=== PATIENT | female | born 1930 | race Caucasian/White ===

== ENCOUNTER 2016-05-14 20:20 | Emergency (ER) | payer OTHER ==
--- NOTE | 2016-05-14 21:24 | ED CLINICAL REPORT ---
Clinical Report - Physicians/Mid Levels [facility] [address] [place] [address] 05/14/2016 20:21 Patient: VIJAYA HAYWOOD Time Seen: 21:15. Arrived- By private vehicle. Historian- patient. HISTORY OF PRESENT ILLNESS Chief Complaint: FOREIGN BODY SENSATION IN THROAT. This started today and is still present but is better now. Pain described as mild. No sore throat, mouth sores, nasal discharge or congestion or ear pain. No toothache, swollen jaw or face, jaw pain or facial pain. (Patient states that the symptoms started while she was eating dinner tonight. She states that when she tried to swallow liquids they just came back up. Patient states that while in the emergency department she feels as though the food bolus passed. She states she has been able to drink water and has had no further problems swallowing.). Similar symptoms previously: Recent medical care: Not recently seen/assessed. REVIEW OF SYSTEMS No fever, eye discomfort, cough, difficulty breathing or chest pain. No nausea, diarrhea, abdominal pain, difficulty with urination or headache. No fainting episodes, joint pain, skin rash, enlarged lymph nodes or vomiting. All systems otherwise negative, except as recorded above. PAST HISTORY Problems: Cancer. Atrial Fibrillation. Dementia. Hypertension. Immunizations. Additional Surgeries: Feet. Lumpectomy of breast. Medications: Aspirin Oral. Diltiazem HCl Oral. Donepezil HCl Oral (Tablet 5 mg) 1 tablet, daily. Escitalopram Oxalate Oral (Tablet 10 mg) 1 tablet, daily. Allergies: Morphine and Related. SOCIAL HISTORY Never smoker. No alcohol use or drug use. ADDITIONAL NOTES The nursing notes have been reviewed. PHYSICAL EXAM Vital Signs: 05/14/2016 20:23 BP: 142/86. HR: 74. RR: 18. O2 saturation: 98%. Temp: 98 F. Pain level now: 0/10. Have been reviewed. Appearance: Alert. No acute distress. Head: Normal external inspection. Eyes: Pupils equal, round and reactive to light. Conjunctivae and eyelids normal. ENT: Nose normal. Pharynx normal. Lips normal. Gums normal. No trismus present. Uvula midline. Neck: Trachea midline. No adenopathy. Thyroid normal. CVS: Normal heart rate and rhythm. Heart sounds normal. Pulses normal. Respiratory: No respiratory distress. Breath sounds normal. Abdomen: Soft and nontender. No organomegaly. Skin: Normal skin color. No rash. Normal skin turgor. Extremities: Extremities exhibit normal ROM. Extremities nontender. Neuro: Oriented X 3. No motor deficit. No sensory deficit. LABS, X-RAYS, AND EKG Pulse Oximetry: 05/14/2016 20:23 O2 saturation: 98%. (FIO2 - room air). Interpretation: normal. PROGRESS AND PROCEDURES Course of Care: The patient's symptoms had completely resolved in the emergency department and since exam was normal. I did not feel any further workup or intervention was indicated in the emergency department. Patient and spouse counseled in person regarding the patient's stable condition and diagnosis. Concerns were addressed. Old medical records reviewed. Disposition: Discharged. Condition: stable and improved. CLINICAL IMPRESSION Esophageal foreign body: food- removed (with spontaneous passage in the ED). INSTRUCTIONS Drink plenty of fluids. Warnings: GENERAL WARNINGS: Return or contact your physician immediately if your condition worsens or changes unexpectedly, if not improving as expected, or if other problems arise. Your Current Medications: CONTINUE TAKING THE FOLLOWING MEDICATIONS: Aspirin Oral. Diltiazem HCl Oral. Donepezil HCl Oral : Tablet 5 mg, 1 tablet daily. Escitalopram Oxalate Oral : Tablet 10 mg, 1 tablet daily. Follow-up: Follow up with a emergency medical service manager. Call for the next available appointment. Reason for referral: Follow up recurrent esophageal food impactions. Understanding of the discharge instructions verbalized by patient and family. (Electronically signed by Joyce Wilkinson MD 05/24/2016 8:36)
--- NOTE | 2016-05-14 21:24 | ED NURSING NOTES ---
Clinical Report - Nurses [facility] [address] [place] [address] 05/14/2016 20:21 Patient: VIJAYA HAYWOOD TRIAGE Triage time 20:27. Acuity: LEVEL 3. Chief Complaint: ("something is stuck in my throat"). --20:33 Evgeny Blankenship R.N. 20:05/14/16. BP: 142/86. HR: 74. RR: 18. O2 saturation: 98% on room air. Temp: 98 F (oral). Pain level now: 0/10. --20:33 Evgeny Blankenship R.N. <<STRICKEN ENTRY-- 20:23 05/14/16. BP: 142/86. HR: 74. RR: 18. O2 saturation: 98% on room air. Pain level now: 0/10. --20:33 Evgeny Blankenship R.N. --END STRIKE>> Correction. --21:47 Evgeny Blankenship R.N. Weight: 49.4 kg stated. Height/Length: 57 inches Per Patient. BMI: 23.6. --20:32 Evgeny Blankenship R.N. Medications Diltiazem HCl Oral. Donepezil HCl Oral (Tablet 5 mg) 1 tablet, daily. Escitalopram Oxalate Oral (Tablet 10 mg) 1 tablet, daily. --20:30 Evgeny Blankenship R.N. Aspirin Oral. --20:31 Evgeny Blankenship R.N. Allergies Morphine and Related. --20:30 Evgeny Blankenship R.N. History Arrived by EMS, and from home (M99). Historian: spouse and patient. Accompanied by family. This started just prior to arrival. ( pt states that she was eating dinner, when she suddenly had the sensation that something was stuck in her throat, and she wasn't able to swallowing anything but "foam" denies vomiting, but states "nothing comes up but foam"). Treatment PAINTING DEPARTMENT SUPERVISOR: None. --20:33 Evgeny Blankenship R.N. PROBLEMS: UTI - Urinary Tract Infection. Cancer. Atrial Fibrillation. Dementia. Conjunctivitis. Hypertension. Immunizations. --20:29 Evgeny Blankenship R.N. ADDITIONAL SURGERIES: Feet. Lumpectomy of breast. --20:31 Evgeny Blankenship R.N. Interventions ID band on patient. To treatment room. --20:33 Evgeny Blankenship R.N. PHYSICAL ASSESSMENT ( Lore Mera RN gave the patient a soda to drink, and then the patient stated "It's gone now. It went down. It's gone now."). GENERAL / NEURO / PSYCH: Alert. --20:34 Evgeny Blankenship R.N. ( pt complains of left upper arm pain, stating the she broke her arm "3 months ago."). CVS: Capillary refill less than 2 seconds. GI / : Abdomen soft and nontender. --20:34 Evgeny Blankenship R.N. RESPIRATORY: Respirations not labored. --20:34 Evgeny Blankenship R.N. ( airway patent, no respiratory distress.). --20:35 Evgeny Blankenship R.N. NURSING PROGRESS NOTES Pulse oximeter and NIBP monitor placed on patient. Head of bed elevated. Reassurance given. Two patient identifiers checked. Call light placed in reach. Side rails up x 2. Bed placed in lowest position. Brakes of bed on. Patient ready for evaluation- chart flagged. Patient waiting for evaluation. --20:35 Evgeny Blankenship R.N. ( Spouse of patient at bedside). --20:36 Evgeny Blankenship R.N. ( Spouse of patient states "This has happened before, 3 times in the recent past."). --20:37 Evgeny Blankenship R.N. pt given sprite to drink with head in chin/chest position. Pt states the FB is now gone. --20:42 Lore Guallpa R.N. ( Patient assisted to bedside commode. she is able to bear wieght, but is unsteady on her feet. her states that she uses a wheelchair at home.). --21:19 Evgeny Blankenship R.N. DISPOSITION / DISCHARGE Departure time: 21:46. Condition at departure: improved and stable. Learning barriers present. Ability to learn limited by dementia. Discharge instructions provided and reviewed with the patient and spouse. Reviewed warnings. Treatments reviewed. Reviewed referrals for followup. Patient and spouse verbalized understanding. Written instructions provided in Persian. The patient was discharged home and accompanied by spouse. She left the Emergency Department in a wheelchair and via private vehicle. Spouse driving. --21:46 Evgeny Blankenship R.N. 21:45 05/14/16. BP: 117/83. HR: 72. RR: 17 (regular and unlabored). O2 saturation: 96% on room air. Pain level now: 0/10. --21:46 Evgeny Blankenship R.N. Locked/Released at 05/14/2016 21:48 by Evgeny Blankenship R.N.
--- NOTE | 2016-05-14 21:24 | ED NURSING NOTES ---
Clinical Report - Nurses [facility] [address] [place] [address] 05/14/2016 20:21 Patient: VIJAYA HAYWOOD TRIAGE Triage time 20:27. Acuity: LEVEL 3. Chief Complaint: ("something is stuck in my throat"). --20:33 Evgeny Blankenship R.N. 20:05/14/16. BP: 142/86. HR: 74. RR: 18. O2 saturation: 98% on room air. Temp: 98 F (oral). Pain level now: 0/10. --20:33 Evgeny Blankenship R.N. <<STRICKEN ENTRY-- 20:23 05/14/16. BP: 142/86. HR: 74. RR: 18. O2 saturation: 98% on room air. Pain level now: 0/10. --20:33 Evgeny Blankenship R.N. --END STRIKE>> Correction. --21:47 Evgeny Blankenship R.N. Weight: 49.4 kg stated. Height/Length: 57 inches Per Patient. BMI: 23.6. --20:32 Evgeny Blankenship R.N. Medications Diltiazem HCl Oral. Donepezil HCl Oral (Tablet 5 mg) 1 tablet, daily. Escitalopram Oxalate Oral (Tablet 10 mg) 1 tablet, daily. --20:30 Evgeny Blankenship R.N. Aspirin Oral. --20:31 Evgeny Blankenship R.N. Allergies Morphine and Related. --20:30 Evgeny Blankenship R.N. History Arrived by EMS, and from home (M99). Historian: spouse and patient. Accompanied by family. This started just prior to arrival. ( pt states that she was eating dinner, when she suddenly had the sensation that something was stuck in her throat, and she wasn't able to swallowing anything but "foam" denies vomiting, but states "nothing comes up but foam"). Treatment FAMILY MANAGER: None. --20:33 Evgeny Blankenship R.N. PROBLEMS: UTI - Urinary Tract Infection. Cancer. Atrial Fibrillation. Dementia. Conjunctivitis. Hypertension. Immunizations. --20:29 Evgeny Blankenship R.N. ADDITIONAL SURGERIES: Feet. Lumpectomy of breast. --20:31 Evgeny Blankenship R.N. Interventions ID band on patient. To treatment room. --20:33 Evgeny Blankenship R.N. PHYSICAL ASSESSMENT ( Lore Mera RN gave the patient a soda to drink, and then the patient stated "It's gone now. It went down. It's gone now."). GENERAL / NEURO / PSYCH: Alert. --20:34 Evgeny Blankenship R.N. ( pt complains of left upper arm pain, stating the she broke her arm "3 months ago."). CVS: Capillary refill less than 2 seconds. GI / : Abdomen soft and nontender. --20:34 Evgeny Blankenship R.N. RESPIRATORY: Respirations not labored. --20:34 Evgeny Blankenship R.N. ( airway patent, no respiratory distress.). --20:35 Evgeny Blankenship R.N. NURSING PROGRESS NOTES Pulse oximeter and NIBP monitor placed on patient. Head of bed elevated. Reassurance given. Two patient identifiers checked. Call light placed in reach. Side rails up x 2. Bed placed in lowest position. Brakes of bed on. Patient ready for evaluation- chart flagged. Patient waiting for evaluation. --20:35 Evgeny Blankenship R.N. ( Spouse of patient at bedside). --20:36 Evgeny Blankenship R.N. ( Spouse of patient states "This has happened before, 3 times in the recent past."). --20:37 Evgeny Blankenship R.N. pt given sprite to drink with head in chin/chest position. Pt states the FB is now gone. --20:42 Lore Guallpa R.N. ( Patient assisted to bedside commode. she is able to bear wieght, but is unsteady on her feet. her states that she uses a wheelchair at home.). --21:19 Evgeny Blankenship R.N. DISPOSITION / DISCHARGE Departure time: 21:46. Condition at departure: improved and stable. Learning barriers present. Ability to learn limited by dementia. Discharge instructions provided and reviewed with the patient and spouse. Reviewed warnings. Treatments reviewed. Reviewed referrals for followup. Patient and spouse verbalized understanding. Written instructions provided in Lithuanian. The patient was discharged home and accompanied by spouse. She left the Emergency Department in a wheelchair and via private vehicle. Spouse driving. --21:46 Evgeny Blankenship R.N. 21:45 05/14/16. BP: 117/83. HR: 72. RR: 17 (regular and unlabored). O2 saturation: 96% on room air. Pain level now: 0/10. --21:46 Evgeny Blankenship R.N. Locked/Released at 05/14/2016 21:48 by Evgeny Blankenship R.N.
--- NOTE | 2016-05-14 21:24 | ED CLINICAL REPORT ---
Clinical Report - Physicians/Mid Levels [facility] [address] [place] [address] 05/14/2016 20:21 Patient: VIJAYA HAYWOOD Time Seen: 21:15. Arrived- By private vehicle. Historian- patient. HISTORY OF PRESENT ILLNESS Chief Complaint: FOREIGN BODY SENSATION IN THROAT. This started today and is still present but is better now. Pain described as mild. No sore throat, mouth sores, nasal discharge or congestion or ear pain. No toothache, swollen jaw or face, jaw pain or facial pain. (Patient states that the symptoms started while she was eating dinner tonight. She states that when she tried to swallow liquids they just came back up. Patient states that while in the emergency department she feels as though the food bolus passed. She states she has been able to drink water and has had no further problems swallowing.). Similar symptoms previously: Recent medical care: Not recently seen/assessed. REVIEW OF SYSTEMS No fever, eye discomfort, cough, difficulty breathing or chest pain. No nausea, diarrhea, abdominal pain, difficulty with urination or headache. No fainting episodes, joint pain, skin rash, enlarged lymph nodes or vomiting. All systems otherwise negative, except as recorded above. PAST HISTORY Problems: Cancer. Atrial Fibrillation. Dementia. Hypertension. Immunizations. Additional Surgeries: Feet. Lumpectomy of breast. Medications: Aspirin Oral. Diltiazem HCl Oral. Donepezil HCl Oral (Tablet 5 mg) 1 tablet, daily. Escitalopram Oxalate Oral (Tablet 10 mg) 1 tablet, daily. Allergies: Morphine and Related. SOCIAL HISTORY Never smoker. No alcohol use or drug use. ADDITIONAL NOTES The nursing notes have been reviewed. PHYSICAL EXAM Vital Signs: 05/14/2016 20:23 BP: 142/86. HR: 74. RR: 18. O2 saturation: 98%. Temp: 98 F. Pain level now: 0/10. Have been reviewed. Appearance: Alert. No acute distress. Head: Normal external inspection. Eyes: Pupils equal, round and reactive to light. Conjunctivae and eyelids normal. ENT: Nose normal. Pharynx normal. Lips normal. Gums normal. No trismus present. Uvula midline. Neck: Trachea midline. No adenopathy. Thyroid normal. CVS: Normal heart rate and rhythm. Heart sounds normal. Pulses normal. Respiratory: No respiratory distress. Breath sounds normal. Abdomen: Soft and nontender. No organomegaly. Skin: Normal skin color. No rash. Normal skin turgor. Extremities: Extremities exhibit normal ROM. Extremities nontender. Neuro: Oriented X 3. No motor deficit. No sensory deficit. LABS, X-RAYS, AND EKG Pulse Oximetry: 05/14/2016 20:23 O2 saturation: 98%. (FIO2 - room air). Interpretation: normal. PROGRESS AND PROCEDURES Course of Care: The patient's symptoms had completely resolved in the emergency department and since exam was normal. I did not feel any further workup or intervention was indicated in the emergency department. Patient and spouse counseled in person regarding the patient's stable condition and diagnosis. Concerns were addressed. Old medical records reviewed. Disposition: Discharged. Condition: stable and improved. CLINICAL IMPRESSION Esophageal foreign body: food- removed (with spontaneous passage in the ED). INSTRUCTIONS Drink plenty of fluids. Warnings: GENERAL WARNINGS: Return or contact your physician immediately if your condition worsens or changes unexpectedly, if not improving as expected, or if other problems arise. Your Current Medications: CONTINUE TAKING THE FOLLOWING MEDICATIONS: Aspirin Oral. Diltiazem HCl Oral. Donepezil HCl Oral : Tablet 5 mg, 1 tablet daily. Escitalopram Oxalate Oral : Tablet 10 mg, 1 tablet daily. Follow-up: Follow up with a medical scheduler. Call for the next available appointment. Reason for referral: Follow up recurrent esophageal food impactions. Understanding of the discharge instructions verbalized by patient and family. (Electronically signed by Joyce Wilkinson MD 05/24/2016 8:36)
--- NOTE | 2016-05-24 08:36 | ED MAR SUMMARY ---
..... Medication Administration Record [facility] [address] [place], [place] [id number] Patient: VIJAYA HAYWOOD Visit ID: [id number] 86y, F Weight: 49.4 kg Height/Length: 57 in BMI: 23.6 ALLERGIES: Morphine and Related
--- NOTE | 2016-05-24 08:36 | ED MED RECONCILIATION SUMMARY ---
Patient: VIJAYA HAYWOOD Medication Reconciliation Report [facility] VisitID: [id number] [address] [place] [address] 86y, F Registration Date/Time: 05/14/2016 Weight: 49.4 kg Height/Length: 57 in. BMI: 23.6 ALLERGIES: Morphine and Related The patient's Home Medications are listed below: CONTINUE TAKING THE FOLLOWING MEDICATIONS: Aspirin Oral Diltiazem HCl Oral Donepezil HCl Oral (5 mg) 1 tablet, daily Escitalopram Oxalate Oral (10 mg) 1 tablet, daily The source(s) of the original Home Medication information: Not obtained. The following Medications were given to the patient in the Emergency Department: None. The following Medications were prescribed to the patient: None.
--- NOTE | 2016-05-24 08:36 | ED DISCHARGE INSTRUCTIONS ---
Patient: VIJAYA HAYWOOD General Instructions [facility] VisitID: [id number] [address] [place] [address] 86y, F Registration Date/Time: 05/14/2016 Esophageal foreign body: food- removed (with spontaneous passage in the ED). INSTRUCTIONS Drink plenty of fluids. Warnings: GENERAL WARNINGS: Return or contact your physician immediately if your condition worsens or changes unexpectedly, if not improving as expected, or if other problems arise. Your Current Medications: CONTINUE TAKING THE FOLLOWING MEDICATIONS: Aspirin Oral. Diltiazem HCl Oral. Donepezil HCl Oral : Tablet 5 mg, 1 tablet daily. Escitalopram Oxalate Oral : Tablet 10 mg, 1 tablet daily. Follow-up: Follow up with a level glass forming machine operator. Call for the next available appointment. Reason for referral: Follow up recurrent esophageal food impactions. Understanding of the discharge instructions verbalized by patient and family. ADDITIONAL INFORMATION Esophageal Blockage, Resolved The esophagus is the passage that carries food from the mouth to the stomach. You had a blockage in the esophagus. This can happen after swallowing a large piece of food, taking a large pill or swallowing foreign objects. If this is a recurring problem, it can be a sign of disease in the esophagus such as inflammation or scarring. If you did not require a special procedure (endoscopy) today to treat your condition, further testing will be needed to evaluate this problem. The blockage has cleared. You should be able to swallow normally again. Home Care: For the next 24 hours you may drink liquids and eat soft foods. If you were given IV medicine today for an endoscopy procedure, you may be drowsy for the next 4-[address] or operate dangerous equipment until you feel alert again. If your blockage was from food, be sure to cut solid food into small pieces before putting it into your mouth. Chew all foods well before swallowing. If your blockage was from an [id number] pill (such as a vitamin), avoid this size pill in the future. If it was from a prescription medicine, ask your doctor for another type of medicine to replace this. Follow Up with your doctor as advised. If you have further problems, contact your doctor or this facility for advice. If this is a recurring problem, contact your doctor to schedule an endoscopy (to look inside the esophagus with a small camera on the end of a tube). Get Prompt Medical Attention if any of the following occur: Chest pain or shortness of breath Unable to swallow Vomiting blood (red or black) Blood in your stool (dark red or black color) Fever of 100.4F (38C) or higher, or as directed by your healthcare provider You have been given the following additional information: Esophageal Foreign Body, Resolved (Electronically signed by Joyce Wilkinson MD 05/24/2016 8:36)
--- NOTE | 2016-05-24 08:36 | ED DISCHARGE INSTRUCTIONS ---
Patient: VIJAYA HAYWOOD General Instructions [facility] VisitID: [id number] [address] [place] [address] 86y, F Registration Date/Time: 05/14/2016 Esophageal foreign body: food- removed (with spontaneous passage in the ED). INSTRUCTIONS Drink plenty of fluids. Warnings: GENERAL WARNINGS: Return or contact your physician immediately if your condition worsens or changes unexpectedly, if not improving as expected, or if other problems arise. Your Current Medications: CONTINUE TAKING THE FOLLOWING MEDICATIONS: Aspirin Oral. Diltiazem HCl Oral. Donepezil HCl Oral : Tablet 5 mg, 1 tablet daily. Escitalopram Oxalate Oral : Tablet 10 mg, 1 tablet daily. Follow-up: Follow up with a double bottom driver. Call for the next available appointment. Reason for referral: Follow up recurrent esophageal food impactions. Understanding of the discharge instructions verbalized by patient and family. ADDITIONAL INFORMATION Esophageal Blockage, Resolved The esophagus is the passage that carries food from the mouth to the stomach. You had a blockage in the esophagus. This can happen after swallowing a large piece of food, taking a large pill or swallowing foreign objects. If this is a recurring problem, it can be a sign of disease in the esophagus such as inflammation or scarring. If you did not require a special procedure (endoscopy) today to treat your condition, further testing will be needed to evaluate this problem. The blockage has cleared. You should be able to swallow normally again. Home Care: For the next 24 hours you may drink liquids and eat soft foods. If you were given IV medicine today for an endoscopy procedure, you may be drowsy for the next 4-[address] or operate dangerous equipment until you feel alert again. If your blockage was from food, be sure to cut solid food into small pieces before putting it into your mouth. Chew all foods well before swallowing. If your blockage was from an [id number]-[id number] pill (such as a vitamin), avoid this size pill in the future. If it was from a prescription medicine, ask your doctor for another type of medicine to replace this. Follow Up with your doctor as advised. If you have further problems, contact your doctor or this facility for advice. If this is a recurring problem, contact your doctor to schedule an endoscopy (to look inside the esophagus with a small camera on the end of a tube). Get Prompt Medical Attention if any of the following occur: Chest pain or shortness of breath Unable to swallow Vomiting blood (red or black) Blood in your stool (dark red or black color) Fever of 100.4F (38C) or higher, or as directed by your healthcare provider You have been given the following additional information: Esophageal Foreign Body, Resolved (Electronically signed by Joyce Wilkinson MD 05/24/2016 8:36)
--- NOTE | 2016-05-24 08:36 | ED MED RECONCILIATION SUMMARY ---
Patient: VIJAYA HAYWOOD Medication Reconciliation Report [facility] VisitID: [id number] [address] [place] [address] 86y, F Registration Date/Time: 05/14/2016 Weight: 49.4 kg Height/Length: 57 in. BMI: 23.6 ALLERGIES: Morphine and Related The patient's Home Medications are listed below: CONTINUE TAKING THE FOLLOWING MEDICATIONS: Aspirin Oral Diltiazem HCl Oral Donepezil HCl Oral (5 mg) 1 tablet, daily Escitalopram Oxalate Oral (10 mg) 1 tablet, daily The source(s) of the original Home Medication information: Not obtained. The following Medications were given to the patient in the Emergency Department: None. The following Medications were prescribed to the patient: None.
--- NOTE | 2016-05-24 08:36 | ED MAR SUMMARY ---
..... Medication Administration Record [facility] [address] [place], [place] [id number] Patient: VIJAYA HAYWOOD Visit ID: [id number] 86y, F Weight: 49.4 kg Height/Length: 57 in BMI: 23.6 ALLERGIES: Morphine and Related
== END 2016-05-14 21:34 | disposition home or self-care (01) ==
LOC: ED SRH 20:20
DX: T18.128A Food in esophagus causing other injury, initial encounter (principal); T18.120A Food in esophagus causing compression of trachea, initial encounter; I10 Essential (primary) hypertension; X58.XXXA Exposure to other specified factors, initial encounter; Y93.89 Activity, other specified; Y99.9 Unspecified external cause status; Y92.9 Unspecified place or not applicable; Z85.9 Personal history of malignant neoplasm, unspecified; Z79.82 Long term (current) use of aspirin; Z79.899 Other long term (current) drug therapy; Z88.5 Allergy status to narcotic agent